=== PATIENT | male | born 1995 | race Caucasian/White ===

== ENCOUNTER 2017-11-29 11:46 | Emergency (ER) | payer OTHER ==
[2017-11-29] MEDS ORDERED: NS 1,000 ML IV ONE ×2 (12:19→14:05)
--- NOTE | 2017-11-29 12:20 | EDPHY ---
H & P Stated Complaint: drug intoxication - Personal History Current Tetanus Diphtheria and Acellular Pertussis (TDAP): Unsure - Medical/Surgical History Hx Asthma: Yes Hx Chronic Respiratory Disease: No Hx Diabetes: No Hx Cardiac Disease: No Hx Renal Disease: No Hx Cirrhosis: No Hx Alcoholism: No Hx HIV/AIDS: No Hx Splenectomy or Spleen Trauma: No - Social History Smoking Status: Light smoker Time Seen by Provider: 11/29/17 12:08 HPI/ROS: CHIEF COMPLAINT: Found passed out in dorm room HISTORY OF PRESENT ILLNESS: 22-year-old male was found sleeping in his dorm room admitted to polysubstance abuse, specifically OxyContin, Valium, marijuana for recreational purposes. Denies suicidal or homicidal ideation or attempt. At the time I interview him he is somnolent and only able to provide limited history. No complaints of pain. No trauma. No fall. REVIEW OF SYSTEMS: A ten point review of systems was performed and is negative with the exception of the items mentioned in the HPI PAST MEDICAL & SURGICAL HISTORY: No pertinent medical or surgical history SOCIAL HISTORY:Admits to polysubstance use PHYSICAL EXAM (Prior to examination, patient consented to physical exam, hands were washed and my usual and customary physical exam procedures followed) 1) GENERAL: Somnolent. Well-developed, well-nourished, alert and oriented. Appears to be in no acute distress. 2) HEAD: Normocephalic, atraumatic 3) HEENT: Pupils equal, round, reactive to light bilaterally. Sclera anicteric. Nasopharynx, oropharynx, clear, no lesions. Ears bilaterally with normal tympanic membranes. No raccoon eyes no Hooks sign. No rhinorrhea. No otorrhea. No hemotympanum. 4) NECK: Full range of motion, no meningeal signs. 5) LUNGS: Clear auscultation bilaterally, no wheezes, no rhonchi, no retractions. 6) HEART: Regular rate and rhythm, no murmur, no heave, no gallop. 7) ABDOMEN: No guarding, no rebound, no focal tenderness, negative McBurney's, negative Carter's, negative Rovsing's, negative peritoneal sign, 8) MUSCULOSKELETAL: Moving all extremities, no focal areas of tenderness, no obvious trauma. No peripheral edema or discoloration. 9) BACK: No CVA tenderness, no midline vertebral tenderness, no fluctuance, no step-off, no obvious trauma, no visual or palpable abnormality. 10) SKIN: No rash, no petechiae. 11) Psychiatric: Patient is oriented X 3, there is no agitation. DIFFERENTIAL DIAGNOSIS: In no particular order including but not limited to hypoglycemia, infectious process, electrolyte abnormality, head injury and intoxicants. (Chloe Almodovar) Constitutional: Initial Vital Signs Temperature (C) 36.7 C 11/29/17 11:55 Heart Rate 67 11/29/17 11:55 Respiratory Rate 16 11/29/17 11:55 Blood Pressure 117/63 11/29/17 11:55 O2 Sat (%) 95 11/29/17 11:55 O2 Delivery Mode Room Air Medical Decision Making - Diagnostics Imaging Results: Imaging Impressions Head CT 11/29/17 14:37 Impression: 1. No acute intracranial findings. If symptoms persist and clinical suspicion warrants, consider MRI. 2. Small axillary mucous retention cysts/polyps with mild mucous membrane thickening in the paranasal sinuses. Findings discussed with Chloe Almodovar 11/29/2017 at 15:03. Imaging Impressions Head CT 11/29/17 14:37 Impression: 1. No acute intracranial findings. If symptoms persist and clinical suspicion warrants, consider MRI. 2. Small axillary mucous retention cysts/polyps with mild mucous membrane thickening in the paranasal sinuses. Findings discussed with Chloe Almodovar 11/29/2017 at 15:03. Images reviewed myself (Chloe Almodovar) ED Course/Re-evaluation: The patient was evaluated and managed by the physician's educational assistant teacher. My cosignature indicates that I reviewed the chart and I agree with the findings and plan of care as documented. I am the secondary supervising physician. (Fabiola Jenkins) 2:18 p.m.: Serial exams have been performed on this patient. Most recent exam at this time he is more awake, attempting to remove his IV. He agrees to go back to sleep. Re-examined the patient, head shows no signs of head injury, no signs of other trauma on his body. He states that he consumed "a few Oxy's and some Valium" for recreational purposes not as a self injurious incident. 4:45 p.m.: Patient re-evaluated, he is sitting up, has gotten himself dressed, was talking on the phone. His gait was still slightly unsteady although significantly improved verses when he initially presented to the emergency department. Plan will be observation in the ER for period of time prior to discharge. I recommend he avoid polysubstance ingestion in the future. I specifically asked him again at this time whether he had self-injurious thoughts , suicidal homicidal ideation and he denies these. States that he had been "partying hard " since last evening. 5:00 p.m.: Care turned over to Dr. Walker at this time. (Chloe Almodovar) 6:15 p.m.-slurred speech, able to walk with a steady gait. Will discharge home with a sober friend. (Catalina Walker) Differential Diagnosis: Altered mental status including but not limited to hypoglycemia, infectious process, electrolyte abnormality, head injury and intoxicants. (Catalina Walker) - Data Points Laboratory Results: Laboratory Results 11/29/17 11:49 11/29/17 11:49 11/29/17 11/29/17 11/29/17 16:30 11:49 11:49 WBC 6.09 10^3/uL 10^3/uL (3.80-9.50) RBC 4.85 10^6/uL 10^6/uL (4.40-6.38) Hgb 15.5 g/dL g/dL (13.7-17.5) Hct 42.9 % % (40.0-51.0) MCV 88.5 fL fL (81.5-99.8) MCH 32.0 pg pg (27.9-34.1) MCHC 36.1 g/dL g/dL (32.4-36.7) RDW 12.4 % % (11.5-15.2) Plt Count 263 10^3/uL 10^3/uL (150-400) MPV 9.1 fL fL (8.7-11.7) Neut % (Auto) 58.9 % % (39.3-74.2) Lymph % (Auto) 27.6 % % (15.0-45.0) [place] % (Auto) 11.7 % % (4.5-13.0) Eos % (Auto) 0.7 % % (0.6-7.6) Baso % (Auto) 0.8 % % (0.3-1.7) Nucleat RBC Rel Count 0.0 % % (0.0-0.2) Absolute Neuts (auto) 3.59 10^3/uL 10^3/uL (1.70-6.50) Absolute Lymphs (auto) 1.68 10^3/uL 10^3/uL (1.00-3.00) Absolute Monos (auto) 0.71 10^3/uL 10^3/uL (0.30-0.80) Absolute Eos (auto) 0.04 10^3/uL 10^3/uL (0.03-0.40) Absolute Basos (auto) 0.05 10^3/uL 10^3/uL (0.02-0.10) Absolute Nucleated RBC 0.00 10^3/uL 10^3/uL (0-0.01) Immature Gran % 0.3 % % (0.0-1.1) Immature Gran # 0.02 10^3/uL 10^3/uL (0.00-0.10) Sodium 142 mEq/L mEq/L (135-145) Potassium 4.3 mEq/L mEq/L (3.5-5.2) Chloride 100 mEq/L mEq/L (97-110) Carbon Dioxide 26 mEq/l mEq/l (22-31) Anion Gap 16 mEq/L mEq/L (8-16) BUN 19 mg/dL mg/dL (7-23) Creatinine 0.9 mg/dL mg/dL (0.7-1.3) Estimated GFR > 60 Glucose 93 mg/dL mg/dL (70-100) Calcium 9.9 mg/dL mg/dL (8.5-10.4) Salicylates < 1.0 mg/dL L mg/dL (2.0-20.0) Urine Opiates Screen NEGATIVE (NEGATIVE) Acetaminophen < 10 mcg/mL L mcg/mL (10-30) Urine Barbiturates NEGATIVE (NEGATIVE) Ur Phencyclidine Scrn NEGATIVE (NEGATIVE) Ur Amphetamine Screen NEGATIVE (NEGATIVE) U Benzodiazepines Scrn NON-NEGATIVE H (NEGATIVE) Urine Cocaine Screen NEGATIVE (NEGATIVE) U Marijuana (THC) Screen NON-NEGATIVE H (NEGATIVE) Ethyl Alcohol < 10 mg/dL mg/dL (0-10) Medications Given: Discontinued Medications Sodium Chloride (Ns) 1,000 mls @ 0 mls/hr IV ONCE ONE PRN Reason: Wide Open Stop: 11/29/17 12:20 Last Admin: 11/29/17 12:41 Dose: 1,000 mls Sodium Chloride (Ns) 1,000 mls @ 0 mls/hr IV ONCE ONE PRN Reason: Wide Open Stop: 11/29/17 14:06 Last Admin: 11/29/17 14:06 Dose: 1,000 mls Departure - Departure Disposition: Home, Routine, Self-Care Clinical Impression: Polysubstance abuse Condition: Good Instructions: Polysubstance Abuse (ED) Additional Instructions: Please do not mix alcohol and drugs in the future. Referrals: [facility] Weston,. [Clinic] - 1-2 days without fail
[2017-11-29 12:27] LABS: PLATELET COUNT 263 10^3/uL (150-400)
[2017-11-29] MEDS ORDERED: LORazepam 2 MG/ML INJ IVP ONE (12:45)
[2017-11-29 19:39] VITALS: BP 109/74; PULSE 54; RESP 18; TEMP 98.2; O2SAT 99
== END 2017-11-29 19:45 | disposition home or self-care (01) ==
DX: F19.10 Other psychoactive substance abuse, uncomplicated (principal); J45.909 Unspecified asthma, uncomplicated; F17.200 Nicotine dependence, unspecified, uncomplicated
CPT/HCPCS: 80305; G0480

== ENCOUNTER 2018-07-18 02:17 | Emergency (ER) | payer OTHER ==
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
[2018-07-18 03:39] VITALS: BP 106/74
== END 2018-07-18 03:39 | disposition home or self-care (01) ==
PROC: 2W3EX1Z Immobilization of Right Hand using Splint (ICD-10-PCS; principal; 2018-07-18)
DX: S60.221A Contusion of right hand, initial encounter (principal); W22.09XA Striking against other stationary object, initial encounter; Y93.89 Activity, other specified

== ENCOUNTER 2018-10-01 01:43 | Emergency (ER) | payer OTHER ==
[2018-10-01 02:03] LABS: PLATELET COUNT 296 10^3/uL (150-400)
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
[2018-10-01] MEDS ORDERED: NICOTINE 21 MG/24 HR PATCH TD ONE (02:28)
[2018-10-01 07:42] VITALS: BP 111/67
--- NOTE | 2018-10-01 11:14 | ASMTTLCEVL ---
TLC Evaluation - Basic Information Evaluation Start Date and 10/01/2018 08:45 AM Time Hospital Status Answers: M1 Hold 72-hr M1 Hold Start Date 10/01/2018 01:07 AM and Time Patient statement Notes: I dont want to kill anybody or cause harm to anybody and I dont want to kill myself. To clarify what the officer stated on the hold regarding everybody needs to and all I see is fire was that about a couple of weeks ago, I had kind of a spiritual awakening and dont want the mistakes Dina made in the past define who I am. So I thought that part of my past needed to and I was texting my friends metaphorically to also not allow past mistakes define them as a person. Regarding the all I see is fire, I was referring to having seen a lot of shitty things before and I dont want to be preoccupied with focusing on the fires. 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 Respondent admitted to diagnosis of anxiety/depression. Respondent admitted to skipping prescribed medications and consuming marijuana and alcohol. Respondent sent texts stating everybody needs to and all I see is fire. BAL was .153 at 0154 hrs. UDS results positive for amphetamine. Pt reported that a few weeks ago, he had punched a wall in his room, smashed a TV, and had previously ripped a door off its hinges at the [email or web address] [place]. Diagnosis History Notes: Anxiety, depression, alcohol abuse and polysubstance abuse. Prior suicide attempts Notes: Pt denied any past history of suicide attempts. Prior hospitalizations Notes: Pt denied any past history of psychiatric hospitalizations. Pt was seen at [facility] ED on 11/29/17 for abuse of Oxycontin, Valium and Marijuana after partying too hard. He was seen also on 07/18/18 after pt had struck a wall with his right hand out of anger and was intoxicated. Treatment Responses Notes: Pt continues to abuse alcohol, marijuana, and non-prescribed stimulants. History of violence Notes: Pt records reflect a pattern of poor impulse control and destruction of property when under the influence of alcohol or other substances. Pt denied any homicidal ideation/intent/plans. Therapist: Pt reported having seen a [facility] therapist at named Joaquín Yo for 6 visits last year. Regarding current therapist, pt stated Dina kind of let the ball slip on this one. Psychiatrist: Pt has been under the outpatient psychiatric care of Bisi Arellano MD in [place], [place] since April 2018. Pt reported that Dr. Arellano has agreed to refill pts current prescriptions for another two month supply in lieu of pts care being tra Medications (name, dosage, route, freq uency) Notes: Gabapentin 600 mg take 3.5 tabs po daily; Pristiq XR 100 mg po daily. Started on these medications in April 2018. Pt stated that he had spilled a bunch of my antidepressant on the airplane, so I was a week short. I skipped a couple of days last week to try to spread out my remaining pills. Allergies/Reaction Notes: NKDA. Sleep Notes: WNL. Appetite Notes: WNL. Medical/Surgical history Notes: Noncontributory. Substance use history (frequency, intensity, his tory, duration) Notes: Pt reported having first tried alcohol and marijuana around the age of 18. Pt reported that he had significantly reduced his alcohol consumption down to a few beer over a six week period, but drank two times this week. He reported he drank 6-7 beers yesterday starting around mid afternoon. He reported that he smokes 1-2 grams of marijuana daily, with last use being last night. He reported that about a year ago, he was abusing non-prescribed Oxycontin, Valium, Adderall, Vyvanse, psychedelics, cocaine. He reported he still occasionally will use non-prescribed Adderall/Vyvanse, with most recent use being 2 days ago. BAL was .153 at 0154 hrs. UDS results positive for amphetamine. Family composition Notes: Parents are and reside in [place], [place]. Pt is an only child. Need for family Answers: No participation in patient's care Family psychiatric/substance abuse history Notes: Pt reported that his father is recovering alcoholic for 20+ years but still will have an occasional beer. He reported that his paternal grandfather and paternal uncle had problems with alcohol. The uncle also from a meth overdose. Developmental history Notes: Pt reported he was born in [place], [place] but his family moved to [place] a few months after. Pt stated he grew up in [place] and [place], then went to high school in [place]. Pt endorsed achieving normal childhood developmental milestones. He denied any history of learning challenges or ADD/ADHD. Pt reported a history of having sustained a few blows to the head and when 10 or so years of age while skiing, he landed on the back of his head (had helmet on) and lost consciousness for approximately a minute, with no medical problems noted subsequently. Pt denied any childhood history of physical, emotional or sexual abuse/trauma. Abuse concerns Answers: None Marital status/children Notes: Pt is single, never , no dependents, and not in a dating relationship. Living situation Notes: Pt resides at the [facility] [employer] [place] in [place]. Sexual history/orientation Notes: Not active. Heterosexual. Peer support/family strengths Notes: Pt identified his parents and several fraternity brothers as supports. Education level/history Notes: Pt is attending his second year at but is considered a freshman academically because he late withdrew last year due to substance abuse/mental health issues last year. He stated he is currently majoring in environmental science but is considering switching major to astronomy or astrophysics. He reported that his attendance of classes has not been consistent but that his grades are better. Work history Notes: Pt is not employed. Notes: None. Legal Notes: Pt reported obtaining his 1st of 3 MIPs in June 2017 for marijuana possession; his second and third MIPs were in November 2017 for alcohol. He reported being placed on probation after the 3rd MIP and had to pay fines, community service, attend alcohol education, and restorative justice through . Scientology/Spiritual Notes: Pt denied having any particular lutheran affiliation but describes self as spiritual. Leisure Notes: Pt reported he enjoys skiing, being with friends and family, playing video games. Collateral Notes: Per mother, Caren Willams [phone]. Patient's strengths Answers: Athletic (Please select at least TWO strengths): Funny/Using Humor Honest Motivated for Treatment Supportive Family Willingness TLC Evaluation - Mental Status Exam Appearance: Answers: Appropriate Clean Unkempt Eye Contact: Answers: Good/Direct Mood: Answers: Euthymic Affect: Answers: Bright Calm Cheerful Congruent w/ Mood Behavior: Answers: Appropriate Cooperative Passive Speech: Answers: Relevant Logical Clear Thought Process: Answers: Organized Oriented Alert Goal Oriented Intact Insight: Answers: Fair Judgement: Answers: Fair Manic Signs/Symptoms Answers: Impulsivity Mood Swings Anxiety Signs/Symptoms Answers: Generalized Anxiety Hallucinations: Answers: None Current Stage of Change Answers: Precontemplation Pt reported to have Answers: No suicidal/self-injuring ideation/behavior? Pt reported to be making Answers: No suicidal/self-injuring threats? Pt reported to have Answers: No aggression/assault ideation/behavior? Pt reported to be making Answers: No aggression/assault threats? Pt exhibits inability to Answers: No care for self/grave disability? Ideation/behavior is Answers: No chronic? Patient has a specific Answers: No plan? Pt has access to means to Answers: No execute the plan? Ideation involves Answers: No serious/lethal intent? Ideation has Answers: No delusional/hallucinatory content? History of Answers: No suicidal/self-injuring ideation, behavior, or threats? History of Answers: No aggressive/assaultive ideation, behavior, or threats? History of serious Answers: No physical harm to self/others while in treatment setting? TLC Evaluation - Suicide/Homicide Risk Suicide Risk Factors: Answers: Alcohol/Heavy Drug Use Impulsivity Intoxication Lack of Scientology Support Legal Difficulties Major Depression Single Homicide/violence risk Answers: Previous Hx of Violence factors: Current Suicidal Answers: No Ideation? Current Suicidal Ideation Answers: No in the Past 48 Hours? Current Suicidal Ideation Answers: No in the Past Month? Current Suicidal Answers: No Ideation, Worst Ever? Suicide Internal Answers: Absence of Psychosis Protective Factors: Anil with Stress Suicide External Answers: Positive Therapeutic Protective Factors: Relationships Social Support Ranking of patient's Answers: Low suicidal risk: Ranking of patient's Answers: Low homicidal risk: TLC Evaluation - Wrap-up BDI Total Score: 0 BDI Question #2 Score: 0 BDI Question #9 Score: 0 BSS Total Score: 0 AXIS I Diagnosis (include DSM-V and ICD-10 codes), must also be entered in [employer], which is the source of truth. 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 Kenney concurred that pt does not appear to meet 27-65 criteria requiring psychiatric hospitalization as pt does not appear to be an imminent risk of harm to self/others/gravely disabled due to a mental illness condition. Dr. Kenney provided verbal order read back vacating M1 hold at 0945 hrs. Evaluation End Date and 10/01/2018 10:30 AM Time (HH:MM): Date Signed: 10/01/2018 11:14 AM Electronically Signed By:Jonn Almodovar
--- NOTE | 2018-10-01 11:15 | ASMTTCLDSP ---
TLC Discharge Disposition Disposition: Answers: Discharge If Answers: Yes DISCHARGED: Patient/family given suicide hotline info & [facility] brochure? Disposition Notes: Notes: Pt stated commitment or ability to keep self safe, denied thoughts of self harm or harm to others. Pt expressed a desire to f/u with new psychiatrist, Yony Murray MD appointment scheduled on 10/08/18 at 2 pm. Pt was given local hotline information and [facility]A brochure After an Attempt and reminded about the [facility] program at for substance abuse help. Pt was reminded of his current strong social pressures to use alcohol/substances in that marijuana is legalized in [place], he attends a [employer] at , he is in a partying fraternity, he has had 3 prior MIPS, and he has strong family history of paternal alcohol abuse. Pt was encouraged to realize for himself that his substance abuse does not appear to help him achieve his goals and appears to problematic. Discharge Concerns/Recommendations: Notes: In consultation with [facility] ED physician, Parish Kenney MD, Dr. Kenney concurred that pt does not appear to meet 27-65 criteria requiring psychiatric hospitalization as pt does not appear to be an imminent risk of harm to self/others/gravely disabled due to a mental illness condition. Dr. Kenney provided verbal order read back vacating M1 hold at 0945 hrs. Was patient given the Answers: Not applicable Inpatient Behavioral Health Prohibited Belongings List while in the ED? Psychiatrist vacating M1 Parish Kenney MD Hold: Date and time M1 hold 10/01/2018 09:45 AM vacated (time format is hh:mm): Date Signed: 10/01/2018 11:15 AM Electronically Signed By:Jonn Almodovar
== END 2018-10-01 10:18 | disposition home or self-care (01) ==
LOC: EDUNIT#
PROC: GZ11ZZZ Psychological Tests, Personality and Behavioral (ICD-10-PCS; principal; 2018-10-01)
DX: R45.851 Suicidal ideations (principal); R45.850 Homicidal ideations; F19.10 Other psychoactive substance abuse, uncomplicated
CPT/HCPCS: 80305; G0480